=== PATIENT | female | born 1990 | race African-American/Black ===

== ENCOUNTER 2017-07-14 17:42 | Emergency (ER) | payer SELFPAY ==
[2017-07-14 18:21] LABS: #Basophils 0.1 thou/uL (0.0-0.2); #Eosinphils 0.2 thou/uL (0.0-0.7); #Lymphocytes 3.2 thou/uL (1.20-3.40); #Monocytes 0.7 thou/uL (0.11-0.59); #Neutrophils 5.8 thou/uL (1.40-6.50); %Basophils 0.6 % (0.0-1.0); %Eosinophils 1.7 % (0.0-10.0); %Lymphocytes 32.3 % (21.0-51.0); %Monocytes 6.6 % (0.0-10.0); Hematocrit 40.1 % (36.0-47.0); Mean Platelet Volume 7.7 fL (7.4-10.4); Red Blood Cell (RBC) Count 4.77 mill/uL (4.20-5.40); White Blood Cell (WBC) Count 9.8 thou/uL (4.8-10.8)
[2017-07-14 18:39] LABS: ALT (SGPT) 16 U/L (8-55); AST (SGOT) 16 U/L (5-34); Alkaline Phosphatase 63 U/L (40-150); Anion Gap 12 mmol/L (10-20); BUN (Urea Nitrogen) 8 mg/dL (7.0-18.7); Bilirubin, Total 0.5 mg/dL (0.2-1.2); Calc. Creatinine Clearance 0 mL/min (70-130); Calcium 9.7 mg/dL (7.8-10.44); Carbon Dioxide 27 mmol/L (22-29); Chloride 104 mmol/L (98-107); Estimated GFR-MDRD Greater than 90; Protein, Total 8.2 g/dL (6.0-8.3)
[2017-07-14 19:04] LABS: Bilirubin Small (Negative); Blood, Urine Negative (Negative); Glucose, Urine (Dipstick) Negative (Negative); Ketone, Urine Negative (Negative); Nitrite Negative (Negative); Protein, Urine (Dipstick) Negative (Neg-Trace); Urobilinogen 0.2 mg/dL (0.2-1.0)
--- NOTE | 2017-07-14 19:54 | ULT ---
PELVIC ULTRASOUND 07/14/17 HISTORY: Suprapubic and periumbilical pain with onset last night after intercourse. Patient states this happe ns everytime she has intercourse. FINDINGS: Multiple transabdominal and endovaginal sonographic images of the pelvis are obtained. The uterus and adnexal structures are not seen on transabdominal imaging. Nabothian cyst is seen in the cervix. The uterus has a normal sonographic appearance and measures 6.1 cm x 3.4 cm x 3.7 cm. The endometria l stripe is normal in thickness and measures 0.6 cm. No fluid or fluid collection is seen in the end ometrial canal. The right ovary demonstrates a normal sonographic appearance and measures 2.8 cm x 3 cm x 4.3 cm. The left ovary measures 4.3 cm x 3.3 cm x 5.2 cm. There is a 3.6 cm anechoic cystic structure seen w ithin the left ovary with minimal internal echoes present which may be related to small amount of de bris or hemorrhage. Doppler evaluation of each ovary does demonstrate venous flow. While arterial flow is difficult to e licit, there does appear to be arterial waveform present in each ovary. There is a small amount of free fluid in the cul-de-sac. IMPRESSION: 1. Mildly complicated left ovarian cyst, and findings may represent a cyst with debris or hemor rhage. Followup evaluation is suggested in 6 to 8 weeks. 2. Normal appearing uterus and right ovary. 3. Small amount of free fluid in the cul-de-sac. POS: [facility]
== END 2017-07-14 20:05 | disposition home or self-care (01) ==
LOC: ERS 17:42 → EDBD 17:42 → ERS 20:05
DX: N76.0 Acute vaginitis (principal); B96.89 Other specified bacterial agents as the cause of diseases classified elsewhere; N83.202 Unspecified ovarian cyst, left side; N94.10 Unspecified dyspareunia; K21.9 Gastro-esophageal reflux disease without esophagitis; I10 Essential (primary) hypertension; Z79.899 Other long term (current) drug therapy
CPT/HCPCS: 36415; 51701; 76856; 80053; 81003; 81025; 85025; 87480; 87491; 87510; 87591; 87660; A4353